=== PATIENT | male | born 1940 | race Caucasian/White ===

== ENCOUNTER → 2016-10-18 | Outpatient (CLI) | payer MEDICARE ==
[~2016-10-18] MED LIST: ACETAMINOPHEN PO; ALDACTONE PO; AMIODARONE PO; ASPIRIN PO; GLUCOTROL PO; IRON PO; JANUVIA PO; LANOXIN PO; LASIX PO; LEVEMIR SUBQ; LIPITOR PO; LOPID600 MG PO; METFORMIN PO; NOVOLOG100 U/ML SUBQ; NOVOLOG7030 SUBQ; PAXIL PO; PLAVIX PO; PROTONIX PO; TOPROL XL PO; VASOTEC PO; VIT B-12 PO; VIT C PO; VIT E PO; VITAMIN C1000 M2 PO; [UNRECOGNIZED DRUG - OTHER] PO
--- NOTE | ~2016-10-18 | CR123 ---
[facility] A Service of [facility] RADIOLOGY TEXT RESULTS PATIENT: YAHAIRA HERRING LOCATION: [facility] : 42 UNIT #: [id number] AGE: [address]: KIANNA REAGAN MD SEX: M ORDER DR: [id number] [facility] [address]. [place], [place] [address] [id number] O MR#: [id number] Acc #: [id number] NAME: YAHAIRA HERRING : 1940 SEX: M STUDY DATE/TIME: 10/18/2016 10:52 UNIT: [facility] ROOM: STUDY DESCRIPTION: CR Foot 2 Views Lt Attending Physician: Kianna Reagan M.D. Referring Physician: Kianna Reagan M.D. Ordering Physician: Kianna Reagan M.D. Primary Care Physician: Alban Hope M.D. MEDICAL IMAGING REPORT This report is preliminary unless electronic signature is present EXAM Left foot, 3 views, 10/18/2016, 1052 hours. CLINICAL HISTORY 76-year-old man complaining of pain and swelling in the left foot since 10/12/2016. History of diabetes and sensation of shoes being too tight. COMPARISON None FINDINGS AP, lateral, and oblique views demonstrate overall normal bone density. There is no definite fracture or dislocation. No plain film evidence of osteomyelitis. IMPRESSION No fracture, dislocation, or plain film evidence of osteomyelitis. Dictated by... Tori De Jesus M.D. THIS IS AN ELECTRONICALLY VERIFIED REPORT Tori De Jesus M.D. at 10/19/2016 9:28 AM TUAN/chon TD: 10/18/2016 15:13 JOB #: [id number] MEDICAL IMAGING REPORT Page 1 of 1 COPY
== END | disposition home or self-care (01) ==
LOC: CRAD 10:34
DX: M25.475 Effusion, left foot (principal); E11.9 Type 2 diabetes mellitus without complications
CPT/HCPCS: 73620

== ENCOUNTER → 2016-12-28 | Outpatient (CLI) | payer MEDICARE ==
--- NOTE | ~2016-12-28 | US136 ---
[facility] A Service of [facility] RADIOLOGY TEXT RESULTS PATIENT: YAHAIRA HERRING LOCATION: [facility] : 42 UNIT #: [id number] AGE: [address]: KIANNA PRIETO MD SEX: M ORDER DR: [id number] [facility] [address] [place], [place] [address] [id number] O MR#: [id number] Acc #: [id number] NAME: YAHAIRA HERRING : 1940 SEX: M STUDY DATE/TIME: 12/28/2016 10:11 UNIT: [facility] ROOM: STUDY DESCRIPTION: U/L [facility] Art Study [facility] Attending Physician: Kianna Prieto M.D. Referring Physician: Kianna Prieto M.D. Ordering Physician: Kianna Prieto M.D. Primary Care Physician: Kianna Prieto M.D. MEDICAL IMAGING REPORT This report is preliminary unless electronic signature is present EXAM Ankle-brachial indices 12/28/2016 HISTORY Claudication. Coronary artery disease. FINDINGS The right brachial pressure is 129 and the left brachial pressure is 128. The right dorsalis pedis pressure is 124, posterior tibial 118, toe 103, for an ankle-brachial index of 0.96. The left dorsalis pedis pressure is 136, posterior tibial 134, toe 126, for an ankle-brachial index of 1.05. Pulse volume recording tracings demonstrate good amplitude signal at the ankle and digital level bilaterally. Doppler waveform analysis indicates a biphasic waveform in the patient and dorsalis pedis arteries bilaterally. IMPRESSION Normal perfusion to both legs. Ankle-brachial index is 0.96 on the right and 1.05 on the left. Dictated by... Sim Huitron M.D. THIS IS AN ELECTRONICALLY VERIFIED REPORT Sim Huitron M.D. at 12/30/2016 7:28 AM [facility] A Service of [facility] RADIOLOGY TEXT RESULTS PATIENT: YAHAIRA HERRING LOCATION: [facility] : 42 UNIT #: [id number] AGE: [address]: KIANNA PRIETO MD SEX: M ORDER DR: NIKOS/vincent TD: 12/28/2016 23:45 JOB #: [id number] MEDICAL IMAGING REPORT Page 1 of 1 COPY
== END | disposition home or self-care (01) ==
LOC: CNIV 09:59
DX: I25.10 Atherosclerotic heart disease of native coronary artery without angina pectoris (principal); R09.89 Other specified symptoms and signs involving the circulatory and respiratory systems
CPT/HCPCS: 93922